=== PATIENT | female | born 1995 | race African-American/Black ===

== ENCOUNTER → 2018-02-13 | Emergency (ER) | payer MEDICAID, OTHER ==
[~2018-02-13] VITALS: Ht 165.1 cm; Wt 55.3 kg
[~2018-02-13] MED LIST: ALBUTEROL SULF8.5 GM INH; TESSALON PERLE100 MG ORAL
[2018-02-13 16:30] VITALS: BP 110/69
--- NOTE | 2018-02-13 16:51 | Emergency Room Report ---
History of Present Illness General Chief Complaint: Flu Like Symptoms Source: Patient Present Illness HPI 22-year-old female p/w cough for 10 days. Pt states cough is productive, with clear non bloody sputum. She has also been wheezing a little bit, she just is in the middle of a Z-Col[place] prescribed by her doctor. Denies fever chills chest pain. No sick contacts or recent travel. Patient does not smoke. Allergies: Coded Allergies: No Known Allergies (Unverified , 02/13/18) Patient History Past Medical History: see triage record Past Surgical History: none Pertinent Family History: none Last Menstrual Period: 02/03/2018 Now: No Reviewed Nursing Documentation: PMH: Agreed; PSxH: Agreed Nursing Documentation-PMH Past Medical History: No Stated History Review of Systems All Other Systems: negative except mentioned in HPI Physical Exam Vital Signs Date Time Temp Pulse Resp B/P (MAP) Pulse Ox O2 Delivery O2 Flow Rate FiO2 02/13/18 16:29 99.2 74 16 110/69 99 Room Air 99.1 Sp02 EP Interpretation: reviewed, normal General Appearance: normal inspection, well appearing, no apparent distress, alert, GCS 15, non-toxic Head: normocephalic, atraumatic Eyes: bilateral eye normal inspection, bilateral eye PERRL, bilateral eye EOMI ENT: normal ENT inspection, normal pharynx, normal voice, moist mucus membranes Neck: normal inspection, full range of motion, supple Respiratory: other - Very slight expiratory wheezing, no muscular distress, she speaking complete sentences, no retractions Cardiovascular #1: normal inspection, regular rate, rhythm, no edema, normal capillary refill Cardiovascular #2: 2+ radial (R), 2+ radial (L) Gastrointestinal: normal inspection, non tender, soft, non-distended, no guarding Musculoskeletal: normal inspection, back normal, normal range of motion, non- tender Neurologic: normal inspection, alert, oriented x3, responsive, motor strength/ tone normal, sensory intact, normal gait, speech normal Psychiatric: normal inspection, judgement/insight normal, memory normal Skin: normal inspection, normal color, no rash, warm/dry, well hydrated, normal turgor Medical Decision Making Diagnostic Impression: Primary Impression: Cough ER Course 22-year-old female p/w cough for 10 days. DDX: Bronchitis versus Viral URI vs. pneumonia Plan: CXR ER course: Patient remains nontoxic, not in resp distress. CXR obtained - no acute infiltrate Disposition: Patient is to be discharged home with a prescription of Gabbie ge Strict precautions discussed with patient on when to return to the emergency room including hemoptysis, high fevers, chills, SOB, chest pain which may indicate severe illness. Patient is to follow up with their primary care doctor within 5 days. Patient agrees with plan. Please note that this Emergency Department Report was dictated using [employer] ethics officer technology software, occasionally this can lead to erroneous entry secondary to interpretation by the dictation equipment Chest X-ray CXR: Ordered: Yes 1 view Indication: Cough EP interpretation: Yes Interpretation: No consolidation, no effusion, no PTX, no acute cardiopulmonary disease Impression: No acute disease Electronically signed by Palmer Rogers MD Last Vital Signs Date Time Temp Pulse Resp B/P (MAP) Pulse Ox O2 Delivery O2 Flow Rate FiO2 02/13/18 16:29 99.2 74 16 110/69 99 Room Air 99.1 Disposition: HOME, SELF-CARE Condition: Improved Scripts Benzonatate* (TESSALON PERLWicho*) 100 Mg Capsule 100 MG ORAL THREE TIMES A DAY, #21 PERLE Prov: Palmer Rogers M.D. 02/13/18 Albuterol Sulfate* (ALBUTEROL SULFATE MDI*) 8.5 Gm Hfa.aer.ad 2 PUFF INH Q4H PRN for cough/wheezing, #1 EA 0 Refills Prov: Palmer Rogers M.D. 02/13/18 Palmer Rogers M.D. Feb 13, 2018 16:51
[2018-02-13 17:15] VITALS: BP 110/69
--- NOTE | 2018-02-14 12:00 | Diagnostic Imaging Report ---
Indication: Dyspnea Comparison: None A single view chest radiograph was obtained. Findings: Cardiomediastinal appearance is within normal limits for age. Pulmonary vascularity is appropriate. The diaphragmatic contour is smooth and costophrenic angles are sharp. No pleural effusions are identified. The bones are unremarkable. Impression: No acute findings
== END | disposition home or self-care (01) ==
LOC: EMR 17:03
DX: R05 Cough (principal)
CPT/HCPCS: 71045; 99283

== ENCOUNTER 2018-04-13 10:33 | Emergency (ER) | payer OTHER ==
[~2018-04-13] VITALS: Ht 165.1 cm; Wt 56.2 kg
[2018-04-13] MEDS ORDERED: NKM (10:43)
[2018-04-13] MEDS ORDERED: Ketorolac 60mg Inj IM ONE (11:00)
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
[2018-04-13 12:02] VITALS: BP 113/77
[2018-04-13] MEDS ORDERED: TRAMADOL HCL50 MG ORAL (12:10)
[2018-04-13] MEDS ORDERED: IBUPROFEN600 MG ORAL (12:10)
[2018-04-13] MEDS ORDERED: CYCLOBENZAPRINE10 MG ORAL (12:12)
[2018-04-13] MEDS ORDERED: NAPROXEN500 M2 ORAL (12:12)
[2018-04-13 12:17] VITALS: BP_SYST 113; BP_SYST 129; BP_DIAS 77; BP_DIAS 84
== END 2018-04-13 12:17 | disposition home or self-care (01) ==
LOC: EMR 11:01
DX: S13.4XXA Sprain of ligaments of cervical spine, initial encounter (principal); V43.52XA Car driver injured in collision with other type car in traffic accident, initial encounter; Y92.410 Unspecified street and highway as the place of occurrence of the external cause
CPT/HCPCS: 72040; 99283

== ENCOUNTER 2018-07-13 00:59 | Emergency (ER) | payer OTHER ==
[~2018-07-13] VITALS: Ht 165.1 cm; Wt 54.4 kg
[~2018-07-13 00:59] MED LIST changes: +CYCLOBENZAPRINE10 MG ORAL; +IBUPROFEN600 MG ORAL; +NAPROXEN500 M2 ORAL; +NKM; +TRAMADOL HCL50 MG ORAL
--- NOTE | 2018-07-13 01:15 | NUR ---
ER Nurse Note: Pt came from home c/o vaginal burning and discomfort for three days. Pt stated it schmidt when she pees, it is itchy. Pt frequently itches vagina; no discharge present. Pt a&ox4, VSS, no signs of distress. ERMD at pt side; will continue to montior.
[2018-07-13 01:18] VITALS: BP 131/87
[2018-07-13] MEDS ORDERED: MONISTAT 11 EACH VG (01:22)
[2018-07-13] MEDS ORDERED: METROGEL-VAGINA70 G1 VAGIN (01:23)
[2018-07-13] MEDS ORDERED: Fluconazole 100mg tab ORAL ONE (01:30)
[2018-07-13 01:33] VITALS: BP 131/87
--- NOTE | 2018-07-13 01:34 | NUR ---
ER Nurse Note: Pt seen, treated, medically cleared by ERMD. Discharge instructions and perscriptions given with repeat verbalziation by pt. Instructed pt to follow up with primary care physican within one week. Pt a&ox4, VSS, no signs of distress. ID band removed. Pt left with all belongings via own transportaiton.
--- NOTE | 2018-07-13 01:46 | Emergency Room Report ---
History of Present Illness General Chief Complaint: Vaginal Source: Patient Present Illness HPI Patient presents with reports of vaginal irritation and burning sensation patient reports that she was recently treated for gonorrhea with antibiotics And has now developed this Irritation externally Denies any burning with urination denies any abdominal pain denies any vaginal discharge denies any pelvic or abdominal pain denies any back or flank pain Allergies: Coded Allergies: No Known Allergies (Unverified , 07/13/18) Patient History Past Medical History: see triage record Pertinent Family History: none Last Menstrual Period: 06/23/2018 Now: No Reviewed Nursing Documentation: PMH: Agreed; PSxH: Agreed Nursing Documentation-PMH Past Medical History: No Stated History Review of Systems All Other Systems: negative except mentioned in HPI Physical Exam Vital Signs Date Time Temp Pulse Resp B/P (MAP) Pulse Ox O2 Delivery O2 Flow Rate FiO2 07/13/18 01:02 98.2 123 26 131/87 97 Room Air Sp02 EP Interpretation: reviewed, normal General Appearance: well appearing, no apparent distress Head: normocephalic, atraumatic ENT: hearing grossly normal Neck: supple Respiratory: no retraction, no accessory muscle use Cardiovascular #1: regular rate, rhythm Gastrointestinal: soft Genitourinary: other - Vaginal exam with female nurse in room reveals irritation to the external vaginal area, no obvious rash or blister formation no discharge Musculoskeletal: normal inspection Neurologic: alert, oriented x3, responsive Skin: other - As above Lymphatic: no adenopathy Medical Decision Making Diagnostic Impression: Primary Impression: vaginitis ER Course Patient's findings are consistent with vaginosis Given the recent antibiotic use patient was given Diflucan here also placed on metronidazole For 7 days vaginally And requires close outpatient follow-up with [facility] Last Vital Signs Date Time Temp Pulse Resp B/P (MAP) Pulse Ox O2 Delivery O2 Flow Rate FiO2 07/13/18 01:33 98.2 78 26 131/87 97 Room Air Status: unchanged Disposition: HOME, SELF-CARE Condition: Stable Scripts Metronidazole* (METROGEL-VAGINAL*) 70 Gm Gel.w.appl 1 APPL VAGIN EVERY 12 HOURS for 7 Days, #70 GM Prov: PjabbiChad DO 07/13/18 Referrals: NON PHYSICIAN (PCP) Patient Instructions: Bacterial Vaginosis, [id number], Vaginitis, Easy-to- Read Additional Instructions: Patient is provided with the discharge instructions notified to follow up with primary doctor in the next 2-3 days otherwise return to the er with any worsening symptoms. Please note that this report is being documented using [employer] technology. This can lead to erroneous entry secondary to incorrect interpretation by the dictating instrument. Chad Slaughter DO Jul 13, 2018 01:46
== END 2018-07-13 01:35 | disposition home or self-care (01) ==
LOC: EMR 01:14
DX: N76.0 Acute vaginitis (principal)
CPT/HCPCS: 99282

== ENCOUNTER 2018-10-30 12:03 | Emergency (ER) | payer MEDICAID, OTHER ==
[~2018-10-30] VITALS: Ht 165.1 cm; Wt 54.4 kg
[~2018-10-30 12:03] MED LIST changes: +METROGEL-VAGINA70 G1 VAGIN; +MONISTAT 11 EACH VG
--- NOTE | 2018-10-30 12:15 | NUR ---
ED Nurse Note: Pt ambulated to ED A&Ox4, c/o vaginal discgarge and smell. PT was seen by OBGYN recently but wants STD testing. Denies pain, VSS
[2018-10-30 12:20] VITALS: BP 113/65
[2018-10-30] MEDS ORDERED: Lidocaine 1% MPF 10mg/ml 5ml INJ ONE (12:30)
[2018-10-30] MEDS: Azithromycin 250mg tab ORAL ONE ×2 (12:30→13:20)
--- NOTE | 2018-10-30 13:02 | Emergency Room Report ---
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 She was not treated for anything. However, patient thinks that she has some kind of infection like bacterial vaginosis, but she does not think it is chlamydia or gonorrhea, she reports is not yellow, not painful, just malodorous and copious. She reports that she is monogamous with a single partner, and she uses OCPs but not condoms or barrier contraception. She reports her partner has no symptoms. Allergies: Coded Allergies: No Known Allergies (Unverified , 07/13/18) Patient History Past Medical History: see triage record Last Menstrual Period: control Reviewed Nursing Documentation: PMH: Agreed; PSxH: Agreed Nursing Documentation-PMH Past Medical History: No Stated History Review of Systems All Other Systems: negative except mentioned in HPI Physical Exam Vital Signs Date Time Temp Pulse Resp B/P (MAP) Pulse Ox O2 Delivery O2 Flow Rate FiO2 10/30/18 12:10 98.1 84 18 96 Room Air Sp02 EP Interpretation: reviewed, normal General Appearance: no apparent distress, alert, non-toxic Head: normocephalic Eyes: bilateral eye normal inspection, bilateral eye PERRL, bilateral eye EOMI ENT: normal ENT inspection, hearing grossly normal, normal pharynx, no angioedema, normal voice, moist mucus membranes Neck: normal inspection, full range of motion, supple, supple/symm/no masses Respiratory: chest non-tender, lungs clear, normal breath sounds, chest symmetrical, palpation of chest normal Cardiovascular #1: normal peripheral pulses, regular rate, rhythm Cardiovascular #2: 2+ radial (R), 2+ radial (L) Gastrointestinal: normal inspection, non tender, soft, no mass, no guarding, no rebound Rectal: deferred Genitourinary: normal inspection, no CVA tenderness, adnexa normal, bladder normal, cervix normal, ext genitalia/vag normal - Macy from RN field applications specialist, + thinnish whitish copious dc, os closed, urethra normal Musculoskeletal: back normal, gait/station normal, normal range of motion, non- tender, no calf tenderness Neurologic: alert, responsive, curtain worker III-XII nml as tested, motor strength/tone normal, sensory intact, speech normal Psychiatric: judgement/insight normal, memory normal, mood/affect normal Skin: normal color, no rash, warm/dry, normal turgor Lymphatic: no adenopathy Medical Decision Making Diagnostic Impression: Primary Impression: Vaginal discharge ER Course patient with likely pectoral nosis, however she or he had this test done by her SAWMILL EQUIPMENT OPERATOR, just hasn't reported back for results, she does have copious discharge, she iogamous, I have a high suspicion gonorrhea however we are unable to test tubes according to the lab, ther cephalexin azithromycin, recommend brandy we have sent off wet prep, her pelvic exam is fairly benign other thantioned. Suspect possible BV versus yeast infection however less likely, and will discharge and instructed patient to ensure patient get STI testing from her marketing technology coordinator. wet mount did show few clue cells, so will give rx for bv. Last Vital Signs Date Time Temp Pulse Resp B/P (MAP) Pulse Ox O2 Delivery O2 Flow Rate FiO2 10/30/18 12:10 98.1 84 18 96 Room Air Disposition: HOME, SELF-CARE Condition: Stable Referrals: [facility] (PCP) HUMPHREY BAILEY M.D October 30, 2018 13:02
[2018-10-30 13:06] LABS: APPEARANCE,URINE CLEAR; BILIRUBIN, URINE NEGATIVE (NEGATIVE); COLOR,URINE PALE YELLOW; GLUCOSE, URINE (UA) NEGATIVE (NEGATIVE); KETONES,URINE NEGATIVE (NEGATIVE); LEUKOCYTE ESTERASE ,URINE NEGATIVE (NEGATIVE); NITRITE,URINE NEGATIVE (NEGATIVE); PH,URINE 5 (4.5-8.0); PROTEIN,URINE NEGATIVE (NEGATIVE); UROBILINOGEN,URINE 1 MG/DL (0.0-1.0)
[2018-10-30] MEDS ORDERED: METRONIDAZOLE500 MG ORAL (13:21)
[2018-10-30 13:28] VITALS: BP 113/65
--- NOTE | 2018-10-30 13:29 | NUR ---
ER DISCHARGE NOTE: Patient is cleared to be discharged per ERMD, pt is aox4, on room air, with stable vital signs. pt was given dc and prescription instructions, pt was able to verbalize understanding, pt id band removed. pt is able to ambulate with steady gait. pt took all belongings. INstructed to see obgyn for follow-up, verbalized understanding
== END 2018-10-30 13:25 | disposition home or self-care (01) ==
LOC: EMR 12:52
DX: N89.8 Other specified noninflammatory disorders of vagina (principal)
CPT/HCPCS: 81003; 81025; 87210; 87491; 87590; 96372; 96374; 99284; J0696; Q0144

== ENCOUNTER 2018-11-24 00:38 | Emergency (ER) | payer MEDICAID ==
[~2018-11-24] VITALS: Ht 165.1 cm; Wt 54.4 kg
[~2018-11-24 00:38] MED LIST changes: +METRONIDAZOLE500 MG ORAL
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
[2018-11-24] MEDS ORDERED: IBUPROFEN600 MG ORAL (00:55)
--- NOTE | 2018-11-24 00:55 | NUR ---
ED Nurse Note: Patient taken down for xray of heel.
--- NOTE | 2018-11-24 00:55 | Emergency Room Report ---
History of Present Illness General Chief Complaint: Lower Extremity Injury Source: Patient Present Illness HPI Is a 22-year-old without any medical problem. She presents with chief complaint of right heel pain. She was doing back handstand yesterday and then landed on her foot. She complain of heel pain. Localized to the lateral aspect of the heel. No other injury. Able to walk on it but tender. No swelling. No bruising. Pain is 7 out of 10. Deny any other complaint Allergies: Coded Allergies: No Known Allergies (Unverified , 07/13/18) Patient History Past Medical History: see triage record, old chart reviewed Past Surgical History: none Pertinent Family History: none Social History: Denies: smoking Last Menstrual Period: 6 months ago on BCP Now: No Immunizations: other Reviewed Nursing Documentation: PMH: Agreed; PSxH: Agreed Nursing Documentation-PMH Past Medical History: No Stated History Review of Systems Eye: Denies: eye pain, blurred vision ENT: Denies: ear pain, nose congestion, throat swelling Respiratory: Denies: cough, shortness of breath Cardiovascular: Denies: chest pain, palpitations Gastrointestinal: Denies: abdominal pain, diarrhea, nausea, vomiting Musculoskeletal: Denies: back pain, joint pain Skin: Denies: rash Neurological: Denies: headache, numbness Endocrine: Denies: increased thirst, increased urine Hematologic/Lymphatic: Denies: easy bruising All Other Systems: negative except mentioned in HPI Physical Exam Vital Signs Date Time Temp Pulse Resp B/P (MAP) Pulse Ox O2 Delivery O2 Flow Rate FiO2 11/24/18 00:43 98.6 99 16 122/68 (86) 100 Room Air Vitals normal Sp02 EP Interpretation: reviewed, normal General Appearance: well appearing, no apparent distress, alert Head: normocephalic, atraumatic Eyes: bilateral eye PERRL, bilateral eye EOMI ENT: hearing grossly normal, normal pharynx Neck: full range of motion, supple, no meningismus Respiratory: chest non-tender, lungs clear, normal breath sounds Cardiovascular #1: regular rate, rhythm, no murmur Gastrointestinal: normal bowel sounds, non tender, no mass, no organomegaly, no bruit, non-distended Musculoskeletal: back normal, gait/station normal, normal range of motion, tender - Right foot: Ecchymosis over the heel. No Achilles tendon tenderness. Tenderness to the lateral aspect of the right heel. Psychiatric: mood/affect normal Skin: warm/dry Medical Decision Making Diagnostic Impression: Primary Impression: Contusion of right heel Qualified Codes: S90.31XA - Contusion of right foot, initial encounter ER Course With soft tissue injury. No fracture dislocation. Will discharge home. Other X-Ray Diagnostic Results Other X-Ray Diagnostic Results : X-Ray ordered: X-rays right heel # of Views/Limited Vs Complete: 2 View Indication: Pain EP Interpretation: Yes Interpretation: no dislocation, no soft tissue swelling, no fractures Impression: No acute disease Electronically Signed by: Dutch Alvarez MD Last Vital Signs Date Time Temp Pulse Resp B/P (MAP) Pulse Ox O2 Delivery O2 Flow Rate FiO2 11/24/18 00:43 98.6 99 16 122/68 (86) 100 Room Air Status: improved Disposition: HOME, SELF-CARE Condition: Stable Scripts Ibuprofen* (MOTRIN*) 600 Mg Tablet 600 MG ORAL THREE TIMES A DAY, #30 TAB 0 Refills Prov: Dutch Alvarez MD 11/24/18 Patient Instructions: Foot Contusion Additional Instructions: Elevate foot. Ice pack to the area. Use crutches as needed. Return if worse. Follow-up with your doctor in 7 days. Dutch Alvarez MD Nov 24, 2018 00:55
[2018-11-24 01:49] VITALS: BP 122/68
--- NOTE | 2018-11-24 01:49 | NUR ---
ED Nurse Note: Patient cleared for discharge, patient being fitted for crutches and placed in splint prior to departure. Patient is A&Ox4, ambulatory with assistive device. ID band removed. Patient departed wtih all personal belongings after verbalizing understanding of discharge instructions.
--- NOTE | 2018-11-24 10:29 | Diagnostic Imaging Report ---
Indication: Heel pain Comparison: None Findings: Lateral and [place] views of the calcaneus performed on the right. No acute fracture identified. Soft tissues are unremarkable. IMPRESSION: No acute injury appreciated
== END 2018-11-24 01:52 | disposition home or self-care (01) ==
LOC: EMR 00:56
DX: S90.31XA Contusion of right foot, initial encounter (principal); X58.XXXA Exposure to other specified factors, initial encounter; Y92.9 Unspecified place or not applicable
CPT/HCPCS: 99283

== ENCOUNTER 2019-04-10 19:48 | Emergency (ER) | payer MEDICAID ==
[~2019-04-10] VITALS: Ht 165.1 cm; Wt 54.4 kg
[2019-04-10 20:01] VITALS: BP 113/74
--- NOTE | 2019-04-10 20:01 | NUR ---
ED Nurse Note: Patient presents with complaintsof sore throat, x 1 day.
[2019-04-10] MEDS ORDERED: Bicillin LA 2.4MMU/4ML SYR IM ONE (20:15)
[2019-04-10] MEDS ORDERED: Ketorolac 30mg Inj IM ONE (20:15)
[2019-04-10] MEDS ORDERED: Dexamethasone 4mg/ml vial IVP ONE (20:15)
--- NOTE | 2019-04-10 20:16 | Emergency Room Report ---
History of Present Illness General Chief Complaint: Sore Throat Source: Patient Present Illness HPI 23-year-old female presents with sore throat x1 day, hurts to swallow, no voice changes, no neck stiffness, she endorses subjective fever/chills, no nausea no vomiting, she states her throat aches, worsened with swallowing alleviated by not swallowing patient presents for evaluation Allergies: Coded Allergies: No Known Allergies (Unverified , 07/13/18) Patient History Past Medical History: see triage record Last Menstrual Period: na Reviewed Nursing Documentation: PMH: Agreed; PSxH: Agreed Nursing Documentation-PMH Past Medical History: No Stated History Review of Systems All Other Systems: negative except mentioned in HPI Physical Exam Vital Signs Date Time Temp Pulse Resp B/P (MAP) Pulse Ox O2 Delivery O2 Flow Rate FiO2 04/10/19 20:01 98.8 99 16 113/74 (87) 97 Room Air Sp02 EP Interpretation: reviewed, normal General Appearance: well appearing, no apparent distress, alert Head: normocephalic, atraumatic Eyes: bilateral eye PERRL, bilateral eye EOMI ENT: uvula midline, moist mucus membranes, tonsillar swelling, pharyngeal erythema, tonsillar exudate, other - no neck stiffness, ROM intact, tender cervical adenopathy Neck: supple, thyroid normal, supple/symm/no masses Respiratory: lungs clear, no respiratory distress, no retraction, no accessory muscle use Cardiovascular #1: normal peripheral pulses, regular rate, rhythm, no edema, no gallop, no murmur Gastrointestinal: non tender, soft, no guarding, no rebound Musculoskeletal: normal inspection Neurologic: alert, oriented x3 Psychiatric: mood/affect normal Skin: no rash, warm/dry Medical Decision Making Diagnostic Impression: Primary Impression: Strep pharyngitis ER Course Patient with tonsillar exudate, possible strep pharyngitis we will give Bicillin , Decadron, Toradol Considered peritonsillar abscess, retropharyngeal abscess, low suspicion, no neck stiffness, no hot potato voice Disposition home with return precautions Last Vital Signs Date Time Temp Pulse Resp B/P (MAP) Pulse Ox O2 Delivery O2 Flow Rate FiO2 04/10/19 20:01 98.8 99 16 113/74 (87) 97 Room Air Disposition: HOME, SELF-CARE Condition: Stable Referrals: [facility] Patient Instructions: Strep Throat Additional Instructions: The patient was provided with discharge instructions, notified to follow-up with a primary care doctor and or specialist in the next 24-48 hours, and to return to the ED if they have worsening of their symptoms. Please note that this report is being documented using [employer] technology. This can lead to erroneous entry secondary to incorrect interpretation by the dictating instrument. Burak Kaur MD Apr 10, 2019 20:16
[2019-04-10 21:00] VITALS: BP 113/74
--- NOTE | 2019-04-10 21:00 | NUR ---
ED Nurse Note: Patient tolerated medication administration well. Medication given include Bicillin LA, Toradol and decadron PO. Patient cleared for dischage, citing no adverse reaction to medication. Patient ID band removed. patient verbalized understanding of discharge instructions and departed with all belongings.
== END 2019-04-10 21:00 | disposition home or self-care (01) ==
LOC: EMR 20:05
DX: J02.0 Streptococcal pharyngitis (principal)
CPT/HCPCS: 81025; 96372; 96374; J1100; J1885; Z7502; 99284

== ENCOUNTER 2019-04-13 20:39 | Emergency (ER) | payer MEDICAID ==
[~2019-04-13] VITALS: Ht 165.1 cm; Wt 54.4 kg
--- NOTE | 2019-04-13 20:55 | NUR ---
ED Nurse Note: pt presents to ED c/o persistent throat pain from strep throat. pt was seen here 3 days ago and reports that she has not seen much improvement. pt denies difficulty breathing, or fever but does states it hurts to swallow and talk that she rates a 5/10 and descibes as "discomfort." upon inspection, the L side appears to be more swollen than the R side. Addendum: 04/13/19 at 2058 by PEREZE pt reports taking advil PM that she states helped her with the pain
[2019-04-13 20:57] VITALS: BP 108/72
[2019-04-13] MEDS ORDERED: Augmentin 875mg Tab ORAL ONE (21:15)
[2019-04-13] MEDS ORDERED: AUGMENTIN 875-1 EAC1 ORAL (21:23)
[2019-04-13 21:30] VITALS: BP 108/72
--- NOTE | 2019-04-13 21:30 | NUR ---
ER Nurse Note: Pt seen, treated, medically cleared for discharge by ERMD. Discharge instuctions and prescriptions given with repeat verbalization by pt. Emphasized to follow up with primay care provider. All orders completed per ERMD orders. Pt a&ox4, VSS, no signs of distress. ID band removed. All questions answered per pt's questions. Pt left with all belongings, left with own transportation.
--- NOTE | 2019-04-13 22:32 | Emergency Room Report ---
History of Present Illness General Chief Complaint: Sore Throat Source: Patient Present Illness HPI 23-year-old female presents ED for evaluation. Complaining of sore throat. Was seen here on 04/10 for same symptoms. Was given a "antibiotic shot" and was discharged. States that her symptoms are not improving. States pain is getting worse. Throbbing, 9 out of 10, nonradiating. Denies fevers or chills. Denies neck stiffness. Denies cough. Denies sick contacts or recent travel. No other aggravating relieving factors. Denies any other associated symptoms Allergies: Coded Allergies: No Known Allergies (Unverified , 07/13/18) Patient History Past Medical History: none Past Surgical History: none Pertinent Family History: none Social History: Denies: smoking, alcohol use, drug use Last Menstrual Period: na Now: No Immunizations: UTD Reviewed Nursing Documentation: PMH: Agreed; PSxH: Agreed Nursing Documentation-PMH Past Medical History: No Stated History Review of Systems All Other Systems: negative except mentioned in HPI Physical Exam Vital Signs Date Time Temp Pulse Resp B/P (MAP) Pulse Ox O2 Delivery O2 Flow Rate FiO2 04/13/19 20:46 98.4 68 16 108/72 (84) 98 Room Air Sp02 EP Interpretation: reviewed, normal General Appearance: no apparent distress, alert, GCS 15, non-toxic Head: normocephalic, atraumatic Eyes: bilateral eye normal inspection, bilateral eye PERRL ENT: hearing grossly normal, no angioedema, normal voice, TMs + canals normal, uvula midline, pharyngeal erythema, tonsillar exudate Neck: full range of motion, supple, no meningismus, supple/symm/no masses Respiratory: chest non-tender, lungs clear, normal breath sounds, speaking full sentences Cardiovascular #1: regular rate, rhythm, no edema Cardiovascular #2: 2+ carotid (R), 2+ carotid (L), 2+ radial (R), 2+ radial (L) , 2+ dorsalis pedis (R), 2+ dorsalis pedis (L) Gastrointestinal: normal bowel sounds, non tender, soft, non-distended, no guarding, no rebound Rectal: deferred Genitourinary: normal inspection, no CVA tenderness Musculoskeletal: back normal, gait/station normal, normal range of motion, non- tender Neurologic: alert, oriented x3, responsive, motor strength/tone normal, sensory intact, speech normal Psychiatric: judgement/insight normal, memory normal, mood/affect normal, no suicidal/homicidal ideation Reflexes: 3+ bicep (R), 3+ bicep (L), 3+ tricep (R), 3+ tricep (L), 3+ knee (R) , 3+ knee (L) Lymphatic: no adenopathy Medical Decision Making Diagnostic Impression: Primary Impression: Pharyngitis Qualified Codes: J02.9 - Acute pharyngitis, unspecified ER Course Hospital Course 23-year-old female presents to ED complaining of sore throat not improved after antbiotic injection Differential diagnoses include: URI, pharyngitis, otitis media Clinical course Patient placed on stretcher. After initial history, physical exam reveals a female in no acute distress. Bilateral TM unremarkable. There is pharyngeal erythema w/ tonsillar exudates. No lymphadenopathy. Clinical findings consistent with pharyngitis. I discussed findings with patient. Did not improve after Bicillin injection. Will discharge with Augmentin. Given Augmentin in ED. Afebrile, nontoxic- appearing. Safe for discharge for close outpatient follow-up. I will provide referrals Diagnosis - pharyngitis Stable and discharged home with prescriptions for augmentin. Instructed to followup with PMD. return to ED if symptoms recur or worsen Last Vital Signs Date Time Temp Pulse Resp B/P (MAP) Pulse Ox O2 Delivery O2 Flow Rate FiO2 04/13/19 21:30 98.4 16 108/72 98 Room Air 04/13/19 20:46 68 Status: improved Disposition: HOME, SELF-CARE Condition: Stable Scripts Amoxicillin/Potassium Clav 875-125* (AUGMENTIN 875-125 TABLET*) 1 Each Tablet 1 TAB ORAL TWICE A DAY, #14 TAB Prov: Juan Daniel Patel MD 04/13/19 Referrals: NON PHYSICIAN (PCP) [facility] Patient Instructions: Pharyngitis, [id number] Juan Daniel Patel MD Apr 13, 2019 22:32
== END 2019-04-13 21:55 | disposition home or self-care (01) ==
LOC: EMR 21:55
DX: J02.9 Acute pharyngitis, unspecified (principal)
CPT/HCPCS: 99282

== ENCOUNTER 2019-08-22 11:46 | Emergency (ER) | payer MEDICAID ==
[~2019-08-22] VITALS: Ht 165.1 cm; Wt 52.2 kg
[~2019-08-22 11:46] MED LIST changes: +AUGMENTIN 875-1 EAC1 ORAL
[2019-08-22 11:55] VITALS: BP 119/67
--- NOTE | 2019-08-22 12:03 | NUR ---
ED Nurse Note: patient walked into ED from home c/o nasal congestion and sorethroat for 7 days. patient is alert awake x4 ambulatory, able to speak in full sentences.
--- NOTE | 2019-08-22 12:31 | Emergency Room Report ---
History of Present Illness General Chief Complaint: Upper Respiratory Illness Source: Patient Present Illness HPI 23-year-old female presents to the emergency department complaining of 6 out of 10 severity sore throat, cough, increased mucus in the throat, nasal congestion with rhinorrhea and sneezing x1 week. Patient reports initially had a cough and then her symptoms progressed to primarily nasal congestion and rhinorrhea. Patient states that she had one ill contact which was her friend which had similar symptoms. She denies fevers or chills. She denies recent travel. Pt. denies contact with any persons whom have been tested positive for or are under investigation/quarantine for nCov-19. She denies history of smoking, asthma or COPD. She denies neck pain/stiffness, headache or photophobia. Patient states she is vaccinated but did not receive this years flu vaccine. No other aggravating or relieving factors at this time. Allergies: Coded Allergies: No Known Allergies (Unverified , 07/13/18) Patient History Past Medical History: see triage record Past Surgical History: none Pertinent Family History: none Last Menstrual Period: 07/2019 Now: No Reviewed Nursing Documentation: PMH: Agreed; PSxH: Agreed Nursing Documentation-PMH Past Medical History: No Stated History Review of Systems All Other Systems: negative except mentioned in HPI Physical Exam Vital Signs Date Time Temp Pulse Resp B/P (MAP) Pulse Ox O2 Delivery O2 Flow Rate FiO2 08/22/19 11:55 98.8 97 18 119/67 (84) 96 Room Air Sp02 EP Interpretation: reviewed, normal General Appearance: no apparent distress, alert, GCS 15, non-toxic Head: normocephalic, atraumatic Eyes: bilateral eye normal inspection, bilateral eye PERRL ENT: hearing grossly normal, normal voice, TMs + canals normal, uvula midline, moist mucus membranes, nasal congestion, tonsillar swelling, pharyngeal erythema , other - no exudates Neck: full range of motion Respiratory: chest non-tender, lungs clear, normal breath sounds, no respiratory distress, no accessory muscle use, no wheezing, speaking full sentences Cardiovascular #1: regular rate, rhythm Musculoskeletal: normal range of motion, gait/station normal, non-tender Neurologic: alert, motor strength/tone normal, oriented x3, sensory intact, responsive, speech normal Psychiatric: judgement/insight normal Skin: no rash, normal color, normal inspection Lymphatic: no adenopathy Medical Decision Making PA Attestation Dr. Bernard is my supervising Physician whom patient management has been discussed with. Diagnostic Impression: Primary Impression: Viral upper respiratory tract infection with cough Additional Impressions: Post-nasal drainage Nasal congestion with rhinorrhea ER Course 23-year-old female presents to the emergency department complaining of 6 out of 10 severity sore throat, cough, increased mucus in the throat, nasal congestion with rhinorrhea and sneezing x1 week. Patient reports initially had a cough and then her symptoms progressed to primarily nasal congestion and rhinorrhea. Patient states that she had one ill contact which was her friend which had similar symptoms. She denies fevers or chills. She denies recent travel. Pt. denies contact with any persons whom have been tested positive for or are under investigation/quarantine for nCov-19. She denies history of smoking, asthma or COPD. She denies neck pain/stiffness, headache or photophobia. Patient states she is vaccinated but did not receive this years flu vaccine. No other aggravating or relieving factors at this time. Ddx considered but are not limited to URI, pneumonia, PE, strep pharyngitis, meningitis. Vital signs: Pt. is afebrile, the remaining VS are WNL H&PE are most consistent with URI- no meningeal signs, oropharynx is not involved, no evidence of bacterial infection at this time. suspect viral in etiology. Pt. is non-toxic in appearance, and NAD, no evidence of respiratory distress. ORDERS: none required at this time, the diagnosis is clinical ED INTERVENTIONS: None required at this time. --PT. EDUCATION: Discussed antibiotic resistance with inappropriate prescribing of antibiotics for viral illnesses. Discussed signs and symptoms to indicate viral illness versus bacterial illness. DISCHARGE: At this time pt. is stable for d/c to home. Will provide printed patient care instructions, and any necessary prescriptions. Care plan and follow up instructions have been discussed with the patient prior to discharge. Last Vital Signs Date Time Temp Pulse Resp B/P (MAP) Pulse Ox O2 Delivery O2 Flow Rate FiO2 08/22/19 12:03 97 18 Room Air 08/22/19 11:55 98.8 119/67 96 Disposition: HOME, SELF-CARE Condition: Stable Referrals: [facility],REFERRING (PCP) Patient Instructions: Upper Respiratory Infection, Adult Additional Instructions: Take medications as directed. *! Do not drink alcohol, drive, or operate heavy machinery while taking Cough Syrup as this may cause drowsiness. ! Follow up with a Primary Care Provider in 3-5 days, even if your symptoms have resolved. Return sooner to ED if new symptoms occur, or current symptoms become worse. - Please note that this Emergency Department Report was dictated using [employer] technology software, occasionally this can lead to erroneous entry secondary to interpretation by the dictation equipment. Samara Wyatt Aug 22, 2019 12:31
[2019-08-22] MEDS ORDERED: PROMETHAZINE-C118 M1 ORAL (12:33)
[2019-08-22] MEDS ORDERED: ZYRTEC-D TABLE1 EACH ORAL (12:33)
[2019-08-22] MEDS ORDERED: MUCINEX1200 MG PO (12:33)
[2019-08-22] MEDS ORDERED: NAPROXEN500 M1 ORAL (12:34)
[2019-08-22 12:43] VITALS: BP 125/70
--- NOTE | 2019-08-22 12:43 | NUR ---
ER DISCHARGE NOTE: Patient is cleared to be discharged per ERMD, pt is aox4, on room air, with stable vital signs. pt was given dc and prescription instructions, pt was able to verbalize understanding, pt id band removed without complications. pt is able to ambulate with steady gait. pt took all belongings.
== END 2019-08-22 12:43 | disposition home or self-care (01) ==
LOC: EMR 12:15
DX: J06.9 Acute upper respiratory infection, unspecified (principal); R09.82 Postnasal drip; R09.81 Nasal congestion
CPT/HCPCS: 99281

== ENCOUNTER 2019-10-18 00:09 | Emergency (ER) | payer MEDICAID ==
[~2019-10-18] VITALS: Ht 165.1 cm; Wt 52.2 kg
[~2019-10-18 00:09] MED LIST changes: +MUCINEX1200 MG PO; +NAPROXEN500 M1 ORAL; +PROMETHAZINE-C118 M1 ORAL; +ZYRTEC-D TABLE1 EACH ORAL
[2019-10-18 00:22] VITALS: BP 101/70
--- NOTE | 2019-10-18 00:22 | NUR ---
ED Nurse Note: Pt from home with c/o left chest pain 10/10 for past 30 min, radiating to upper neck area x 30 min DISEASE CASE MANAGER RN.
[2019-10-18] MEDS ORDERED: IBUPROFEN600 M1 ORAL (00:41)
--- NOTE | 2019-10-18 00:41 | Emergency Room Report ---
History of Present Illness General Chief Complaint: Chest Pain Source: Patient Present Illness HPI This is a 23-year-old female with no past medical history. She presents complaint of chest pain. Onset was 1 hour ago. She was in bed watching TV. She turned and felt sharp pain underneath her left breast area. Cushing spasming in that area. Pain was sharp. It caused her felt short of breath no nausea or vomiting. No diaphoresis. Worse with movement. Pain was spasm in nature. 8 out of 10. It was hurting while she was in triage but by the time she got back here it resolved. No fever chills. No trauma. Worse with movement. Better with rest. Had spasm pain before but never lasted this long. Allergies: Coded Allergies: No Known Allergies (Unverified , 07/13/18) COVID-19 Screening Contact w/high risk pt: No Recent Travel to affected area: No Experienced COVID-19 symptoms?: No Patient History Past Medical History: see triage record, old chart reviewed Past Surgical History: none Pertinent Family History: none Social History: Denies: smoking Last Menstrual Period: 10-10-2019 Now: No Immunizations: other Reviewed Nursing Documentation: PMH: Agreed; PSxH: Agreed Nursing Documentation-PMH Past Medical History: No Stated History Review of Systems Eye: Denies: eye pain, blurred vision ENT: Denies: ear pain, nose congestion, throat swelling Respiratory: Denies: cough, shortness of breath Cardiovascular: Reports: chest pain; Denies: palpitations Gastrointestinal: Denies: abdominal pain, diarrhea, nausea, vomiting Musculoskeletal: Denies: back pain, joint pain Skin: Denies: rash Neurological: Denies: headache, numbness Endocrine: Denies: increased thirst, increased urine Hematologic/Lymphatic: Denies: easy bruising All Other Systems: negative except mentioned in HPI Physical Exam Vital Signs Date Time Temp Pulse Resp B/P (MAP) Pulse Ox O2 Delivery O2 Flow Rate FiO2 20 00:15 98.1 78 18 101/70 (80) 96 Room Air Vitals normal Sp02 EP Interpretation: reviewed, normal General Appearance: well appearing, no apparent distress, alert Head: normocephalic, atraumatic Eyes: bilateral eye PERRL, bilateral eye EOMI ENT: hearing grossly normal, normal pharynx Neck: full range of motion, supple, no meningismus Respiratory: chest non-tender, lungs clear, normal breath sounds Cardiovascular #1: regular rate, rhythm, no murmur Gastrointestinal: normal bowel sounds, non tender, no mass, no organomegaly, no bruit, non-distended Musculoskeletal: back normal, normal range of motion, gait/station normal Psychiatric: mood/affect normal Medical Decision Making Diagnostic Impression: Primary Impression: Muscle spasm ER Course Patient with a chest wall muscle spasm. No evidence of ACS, PE, dissection to name a few. Will discharge home. EKG Diagnostic Results Rate: normal Rhythm: NSR ST Segments: no acute changes ASA given to the pt in ED: No Last Vital Signs Date Time Temp Pulse Resp B/P (MAP) Pulse Ox O2 Delivery O2 Flow Rate FiO2 10/18/19 00:22 98.1 78 18 101/70 96 Room Air Status: improved Disposition: HOME, SELF-CARE Condition: Stable Scripts Ibuprofen* (MOTRIN*) 600 Mg Tablet 600 MG ORAL Q6H PRN for FOR PAIN, #20 TAB 0 Refills Prov: Dutch Alvarez MD 10/18/19 Referrals: NON PHYSICIAN (PCP) Additional Instructions: Follow up with your doctor in 7 days. Return if symptoms worsen. Dutch Alvarez MD October 18, 2019 00:41
[2019-10-18 00:45] VITALS: BP 101/70
--- NOTE | 2019-10-18 00:45 | NUR ---
ED Nurse Note: Pt cleared by ERMD for discharge. DC instructions/prescription was given and explained to pt and verbalized understanding of teachings. All medical deviecs such as ID band removed. Pt is AAO x4, ambulatory and left with all personal belongings.
== END 2019-10-18 00:45 | disposition home or self-care (01) ==
LOC: EMR 00:37
DX: M62.838 Other muscle spasm (principal)
CPT/HCPCS: 93005; Z7502; 99283

== ENCOUNTER 2019-11-28 18:01 | Emergency (ER) | payer MEDICAID ==
[~2019-11-28] VITALS: Ht 165.1 cm; Wt 52.2 kg
[~2019-11-28 18:01] MED LIST changes: +IBUPROFEN600 M1 ORAL
[2019-11-28 18:14] VITALS: BP 105/68
--- NOTE | 2019-11-28 18:15 | Emergency Room Report ---
History of Present Illness General Chief Complaint: Upper Respiratory Illness Source: Patient Present Illness HPI Patient is a 23-year-old female denies any significant past medical history who presents to the ER complaining of right thumb pain. Patient states that she fell on it 3 weeks ago it was very painful but got better. She states that today something got wrapped around the same finger and pulled and now she is complaining about pain. She is left-hand dominant. She denies any other trauma. She states that she does not want anything for pain at this time. Allergies: Coded Allergies: No Known Allergies (Unverified , 07/13/18) COVID-19 Screening Contact w/high risk pt: No Recent Travel to affected area: No Experienced COVID-19 symptoms?: No COVID-19 Testing performed PUBLISHER ASSISTANT: No Patient History Last Menstrual Period: 11/11/2019 Now: No Reviewed Nursing Documentation: PMH: Agreed; PSxH: Agreed Nursing Documentation-PMH Past Medical History: No Stated History Review of Systems All Other Systems: negative except mentioned in HPI Physical Exam Vital Signs Date Time Temp Pulse Resp B/P (MAP) Pulse Ox O2 Delivery O2 Flow Rate FiO2 11/28/19 18:06 99.1 82 18 105/68 (80) 95 Room Air Sp02 EP Interpretation: reviewed, normal General Appearance: no apparent distress, alert, GCS 15, non-toxic Head: normocephalic, atraumatic Eyes: bilateral eye normal inspection, bilateral eye PERRL ENT: hearing grossly normal, normal pharynx, no angioedema, normal voice Neck: full range of motion, supple/symm/no masses Respiratory: lungs clear, no respiratory distress Cardiovascular #1: regular rate, rhythm Rectal: deferred Musculoskeletal: normal range of motion, other - R thumb no snuff box tenderness, pip ttp, normal rom, no deformity or edema, cap refill immediate Neurologic: software intern III-XII nml as tested, oriented x3 Psychiatric: no suicidal/homicidal ideation Skin: no rash Lymphatic: no adenopathy Procedures Splinting Splinting : Consent: Verbal Location: R thumb Pre-Made Type: velcro Splint: thumb spica Pre-Proc Neuro Vasc Exam: normal Post-Proc Neuro Vasc Exam: normal Patient Tolerated: Well Complications: None Medical Decision Making Diagnostic Impression: Primary Impression: Sprain of hand, thumb, right ER Course No acute fracture seen on x-ray. I explained to the patient that I am not a radiologist that the x-ray would be read reviewed by radiologist tomorrow we would call her with any acute findings. Patient requesting an immobilizer for her thumb as she has injured it twice in the past 3 weeks. I have ordered for her thumb spica Velcro. After discussing risks and benefits of further diagnostics, treatment plans, as well as indications for and risks of admission , the patient is agreeable to being discharged home. I have explained that their evaluation and treatment in the emergency department today is an important step towards them achieving better health but that their evaluation today is not intended to replace further evaluation and treatment by a physician in their local clinic. I have explained that while the current findings suggest no immediate life threatening emergency they will require further evaluation and treatment by a physician of their choice in their area. They understand that it will be necessary for them to review the final reports of their ED visit with their clinic physician. We have reviewed indications for return to the Emergency Department. I have explained that additional time may need to pass and/or additional testing as an outpatient may be necessary before a definitive diagnosis can be made. They tell me they are willing to follow up as instructed within the timeframe I recommend. They appear to understand what we discussed. Additionally they understand that if they are unable to be seen by an outpatient physician they are welcome, and in fact should, return to the Emergency Department for a repeat evaluation. The patient is stable at time of discharge. Other X-Ray Diagnostic Results Other X-Ray Diagnostic Results : X-Ray ordered: R fingers # of Views/Limited Vs Complete: 3 View Indication: Pain EP Interpretation: Yes Interpretation: no dislocation, no soft tissue swelling, no fractures Impression: No acute disease Electronically Signed by: Sheila Vickers MD Last Vital Signs Date Time Temp Pulse Resp B/P (MAP) Pulse Ox O2 Delivery O2 Flow Rate FiO2 11/28/19 18:06 99.1 82 18 105/68 (80) 95 Room Air Disposition: HOME, SELF-CARE Condition: Stable Additional Instructions: The patient was provided with discharge instructions, notified to follow-up with a primary care doctor and or specialist in the next 24-48 hours, and to return to the ED if they have worsening of their symptoms. Please note that this report is being documented using [employer] technology. This can lead to erroneous entry secondary to incorrect interpretation by the dictating instrument. Sheila Vickers M.D. Nov 28, 2019 18:15
[2019-11-28 18:42] VITALS: BP 105/68
--- NOTE | 2019-11-28 18:50 | Diagnostic Imaging Report ---
EXAM: XR Right Fingers, 2 or More Views CLINICAL HISTORY: TRAUMA TECHNIQUE: Frontal, lateral and oblique views of the fingers of the right hand. COMPARISON: No relevant prior studies available. FINDINGS: Bones/joints: Unremarkable. No acute fracture. No dislocation. Soft tissues: Unremarkable. No radiopaque foreign body. IMPRESSION: No fracture or malalignment.
== END 2019-11-28 18:43 | disposition home or self-care (01) ==
LOC: EMR 18:27
DX: S63.601A Unspecified sprain of right thumb, initial encounter (principal); W19.XXXA Unspecified fall, initial encounter; Y92.9 Unspecified place or not applicable
CPT/HCPCS: 29130; 73140; Z7502; 99283